=== PATIENT | female | born 1945 | race Caucasian/White ===

== ENCOUNTER → 2017-06-30 | Outpatient (CLI) | payer OTHER, MEDICARE | LOC: RAD 12:03 | DX: R05 Cough (principal) ==

== ENCOUNTER 2017-07-04 18:04 | Emergency (ER) | payer OTHER, MEDICARE ==
[~2017-07-04] VITALS: Ht 157.5 cm; Wt 67.1 kg
--- NOTE | ~2017-07-04 | EKG ---
[address] [address] ELECTROCARDIOGRAM REPORT Name: BRECHRISTIANO Room #: DEP [facility]#: [id number] Admission: 07/04/17 Attend Phys: Discharge: 07/04/17 Date of : 43 Report #: [id number] THIS REPORT FOR: //name// [facility] ED Test Date: 2017-07-04 Test Time: 18:23:34 Pat Name: CHRISTIANO DÍAZ Department: Room: Gender: F Lead Application Architect: ELENA : 1945 Requested By: Sarahy Saleh Order Number: [id number] MD: Sami Camejo Measurements Intervals [place] Rate: 87 P: 52 [place]: 188 QRS: 11 QRSD: 77 T: 60 QT: 362 QTc: 436 Interpretive Statements Sinus rhythm RSR' in V1 or V2, right VCD or RVH No previous ECG available for comparison Electronically Signed On 07-05-2017 12:09:01 CDT by Sami Camejo [email or web address] <ELECTRONICALLY SIGNED> By: Sami Camejo MD 07/05/17 1209 1823 22 Sami Camejo MD /JUANA
[2017-07-04 18:57] LABS: ABSOLUTE NEUTROPHILS 6.2 thou/uL (1.4-8.2); BASOPHILS 1.1 % (0.0-2.0); HEMATOCRIT 42.8 % (37.0-47.0); HEMOGLOBIN 14.6 gm/dL (12.0-15.0); LYMPHOCYTES 27.4 % (24.0-44.0); MCH 30.2 pg (26.0-34.0); MCHC 34.2 g/dL (28.0-37.0); MCV 88.4 fL (80.0-100.0); MONOCYTES 6.2 % (1.0-8.0); PLATELET COUNT 181 thou/uL (150-400); POLYS 63.3 % (36.0-66.0); RBC 4.84 mil/uL (4.20-5.00); WBC 9.8 thou/uL (4.0-11.0)
[2017-07-04 19:07] LABS: ANION GAP 4 mmol/L (7-16); BUN 15 mg/dL (7-18); CALCIUM 9.7 mg/dL (8.5-10.1); CHLORIDE 107 mmol/L (98-107); CO2 30 mmol/L (21-32); GLUCOSE 109 mg/dL (74-106); POTASSIUM 3.9 mmol/L (3.5-5.1); SODIUM 141 mmol/L (136-145)
[2017-07-04 19:15] LABS: TROPONIN-I < 0.04 ng/mL (<0.06)
[2017-07-04] MEDS ORDERED: MEDROLDOSEPACK PO (22:06)
[2017-07-04 22:11] VITALS: BP 141/73
== END 2017-07-04 22:11 | disposition home or self-care (01) ==
LOC: ER 18:04
PROVIDERS: Emergency Medicine
DX: J98.6 Disorders of diaphragm (principal); R07.89 Other chest pain; R06.00 Dyspnea, unspecified

== ENCOUNTER → 2017-10-23 | Outpatient (CLI) | payer OTHER, MEDICARE ==
[~2017-10-23] MED LIST: CYMBALTA60 MG PO; FLONASE 0.05%50 MCG NASAL; LIPITOR10 MG PO; MEDROLDOSEPACK PO; NAPROSYN500 MG PO; PROLOPRIM100 MG PO; SYMBICORT160 MCG/4. INH; SYNTHROID100 MC1 PO; TRAMADOL 50 MG50 MG PO; ZYRTEC10 M5 PO
[2017-10-23 10:26] VITALS: BP 126/75
[2017-10-23 16:00] LABS: ALBUMIN 3.7 g/dL (3.4-5.0); CALCIUM 10.1 mg/dL (8.5-10.1); CREATININE 0.9 mg/dL (0.6-1.0); POTASSIUM 4.1 mmol/L (3.5-5.1); TOTAL BILIRUBIN 0.5 mg/dL (<0.1-1.0); TOTAL PROTEIN 7.3 g/dL (6.4-8.2)
== END ==
LOC: SEN 07:59 → RAD 07:59 → SEN 15:26
PROVIDERS: Internal Medicine Geriatric Medicine
DX: M50.322 Other cervical disc degeneration at C5-C6 level (principal); E03.9 Hypothyroidism, unspecified

== ENCOUNTER → 2017-11-05 | Outpatient (CLI) | payer OTHER, MEDICARE ==
[2017-11-05 10:11] VITALS: BP 128/69
== END ==
LOC: SEN 08:23
DX: M25.511 Pain in right shoulder (principal); M25.512 Pain in left shoulder; R10.9 Unspecified abdominal pain; E03.9 Hypothyroidism, unspecified; M81.0 Age-related osteoporosis without current pathological fracture; Z96.641 Presence of right artificial hip joint

== ENCOUNTER 2017-12-22 16:05 | Emergency (ER) | payer OTHER, MEDICARE ==
[~2017-12-22] VITALS: Ht 157.5 cm; Wt 63.5 kg
--- NOTE | ~2017-12-22 | EKG ---
[place] [address] [facility] [place] [address] ELECTROCARDIOGRAM REPORT Name: CHRISTIANO DÍAZ [id number] Admission: 12/22/17 Attend Phys: Discharge: Date of : 43 Report #: [id number] THIS REPORT FOR: //name// [facility] ED Test Date: 2017-12-22 Test Time: 17:09:10 Pat Name: CHRISTIANO DÍAZ Department: Room: Gender: F Fiber Optic Splicer: LAXMI : 1945 Requested By: Sarahy Saleh Order Number: [id number] MD: Measurements Intervals [place] Rate: 96 P: 76 [place]: 184 QRS: 34 QRSD: 74 T: 66 QT: 332 QTc: 420 Interpretive Statements Sinus rhythm Probable left atrial enlargement RSR' in V1 or V2, right VCD or RVH Compared to ECG 11/29/2017 21:27:48 Right ventricular hypertrophy now present RSR' in V1 or V2 now present [email or web address] By: 1709 1709 Epiphany EpiphanyMD /EPI
[~2017-12-22 16:05] MED LIST changes: +AMOXICILLIN 50500 MG PO; +NORVASC5 MG PO; +PREDNISONE 10 M10 MG PO; +SALONPAS PATCH1 EAC1 TOP; +VENTOLIN HFA 1818 GM INH; +XANAX 0.5 MG0.5 MG PO
[2017-12-22 17:50] LABS: ANION GAP 8 mmol/L (7-16); BUN 14 mg/dL (7-18); CALCIUM 10.2 mg/dL (8.5-10.1); CHLORIDE 104 mmol/L (98-107); CO2 26 mmol/L (21-32); CREATININE 0.9 mg/dL (0.6-1.0); GLUCOSE 188 mg/dL (74-106); POTASSIUM 4.4 mmol/L (3.5-5.1); SODIUM 138 mmol/L (136-145)
[2017-12-22 17:54] LABS: BASOPHILS 0.4 % (0.0-2.0); EOSINOPHILS 0.3 % (0.0-3.0); HEMATOCRIT 42.2 % (37.0-47.0); HEMOGLOBIN 14.1 gm/dL (12.0-15.0); LYMPHOCYTES 10.2 % (24.0-44.0); MCH 28.9 pg (26.0-34.0); MCHC 33.5 g/dL (28.0-37.0); MCV 86.4 fL (80.0-100.0); MONOCYTES 3.3 % (1.0-8.0); PLATELET COUNT 197 thou/uL (150-400); POLYS 85.8 % (36.0-66.0); RBC 4.88 mil/uL (4.20-5.00); RDW 16.1 % (10.5-14.5); WBC 15.1 thou/uL (4.0-11.0)
[2017-12-22 17:59] LABS: TROPONIN-I <0.06 ng/mL (<0.06)
[2017-12-22 19:04] LABS: URINE BILIRUBIN NEGATIVE (Negative); URINE BLOOD TRACE (Negative); URINE CLARITY CLOUDY; URINE COLOR YELLOW; URINE GLUCOSE-RANDOM* NEGATIVE (Negative); URINE KETONES NEGATIVE (Negative); URINE LEUKOCYTES-REFLEX 1+ (Negative); URINE NITRITE-REFLEX NEGATIVE (Negative); URINE PROTEIN (DIPSTICK) NEGATIVE (Negative); URINE UROBILINOGEN 0.2 E.U./dl (0.2-1.0)
[2017-12-22 19:06] LABS: SQUAMOUS >10 Many /LPF (0-3)
[2017-12-22 19:07] LABS: BACTERIA-REFLEX >30 Many /HPF (None Seen); CASTS None Seen /LPF (None Seen); CRYSTALS None Seen /LPF (None Seen); URINE RBC 0-2 Rare /HPF (0-2); URINE WBC-REFLEX 6-15 Few /HPF (0-5)
[2017-12-22] MEDS ORDERED: PREDNISONE 10 M10 M1 PO (20:00)
[2017-12-22 20:36] VITALS: BP 117/56
[2017-12-23] MEDS ORDERED: PREDNISONE 10 M10 MG PO (13:21)
== END 2017-12-22 20:36 | disposition home or self-care (01) ==
LOC: ER 16:05
PROVIDERS: Emergency Medicine
DX: J44.1 Chronic obstructive pulmonary disease with (acute) exacerbation (principal); E03.9 Hypothyroidism, unspecified; M19.90 Unspecified osteoarthritis, unspecified site; Z96.641 Presence of right artificial hip joint; Z90.49 Acquired absence of other specified parts of digestive tract; Z88.2 Allergy status to sulfonamides

== ENCOUNTER → 2017-12-23 | Outpatient (CLI) | payer OTHER, MEDICARE ==
[~2017-12-23] MED LIST changes: +DOXYCYCLINE 10100 MG PO; +PREDNISONE 10 M10 M1 PO
[2017-12-23 13:32] VITALS: BP 129/75
== END ==
LOC: SEN 08:50
DX: J44.9 Chronic obstructive pulmonary disease, unspecified (principal); F32.9 Major depressive disorder, single episode, unspecified; E03.9 Hypothyroidism, unspecified; M19.90 Unspecified osteoarthritis, unspecified site; Z90.49 Acquired absence of other specified parts of digestive tract; Z96.641 Presence of right artificial hip joint; Z79.899 Other long term (current) drug therapy

== ENCOUNTER 2018-01-09 16:09 | Emergency (ER) | payer OTHER, MEDICARE ==
[~2018-01-09] VITALS: Ht 157.5 cm; Wt 63.5 kg
--- NOTE | ~2018-01-09 | EKG ---
[address] [place] [address] ELECTROCARDIOGRAM REPORT Name: CHRISTIANO DÍAZ ANN Room #: DEP [facility]#: [id number] Admission: 01/09/18 Attend Phys: Discharge: 01/09/18 Date of : 43 Report #: [id number] THIS REPORT FOR: //name// [facility] ED Test Date: 2018-01-09 Test Time: 17:00:37 Pat Name: CHRISTIANO DÍAZ Department: Room: Gender: F Patient Registrar: RAFY : 1945 Requested By: Ander Robles Order Number: [id number] MD: Edward Marr Measurements Intervals [place] Rate: 95 P: 54 [place]: 187 QRS: 8 QRSD: 81 T: 63 QT: 353 QTc: 444 Interpretive Statements Sinus rhythm Abnormal R-wave progression, early transition Compared to ECG 12/22/2017 17:09:10 No significant change was found Electronically Signed On 01-12-2018 8:20:53 CDT by Edward Marr [email or web address] <ELECTRONICALLY SIGNED> By: Edward Marr MD, [facility] 01/12/18 0820 99 99 Edward Marr MD, FACC /EPI
[~2018-01-09 16:09] MED LIST changes: -DOXYCYCLINE 10100 MG PO
[2018-01-09 17:22] LABS: ABSOLUTE NEUTROPHILS 10.7 thou/uL (1.4-8.2); BASOPHILS 0.6 % (0.0-2.0); EOSINOPHILS 0.3 % (0.0-3.0); HEMATOCRIT 38.5 % (37.0-47.0); MCH 29.6 pg (26.0-34.0); MCHC 33.9 g/dL (28.0-37.0); MCV 87.3 fL (80.0-100.0); MONOCYTES 5.6 % (1.0-8.0); PLATELET COUNT 173 thou/uL (150-400); POLYS 82.5 % (36.0-66.0); RBC 4.41 mil/uL (4.20-5.00); RDW 16.2 % (10.5-14.5); WBC 12.9 thou/uL (4.0-11.0)
[2018-01-09 17:42] LABS: ANION GAP 8 mmol/L (7-16); BUN 13 mg/dL (7-18); CALCIUM 9.6 mg/dL (8.5-10.1); CHLORIDE 103 mmol/L (98-107); CO2 25 mmol/L (21-32); CREATININE 0.8 mg/dL (0.6-1.0); GLUCOSE 159 mg/dL (74-106); SODIUM 136 mmol/L (136-145); TROPONIN-I <0.06 ng/mL (<0.06)
[2018-01-09 19:48] VITALS: BP 110/65
[2018-01-09] MEDS ORDERED: DOXYCYCLINE 10100 MG PO (19:57)
== END 2018-01-09 20:25 | disposition home or self-care (01) ==
LOC: ER 16:09
PROVIDERS: Emergency Medicine
DX: R60.0 Localized edema (principal); J18.9 Pneumonia, unspecified organism; K59.00 Constipation, unspecified; E03.9 Hypothyroidism, unspecified; M19.90 Unspecified osteoarthritis, unspecified site; I10 Essential (primary) hypertension; F41.9 Anxiety disorder, unspecified; F32.9 Major depressive disorder, single episode, unspecified; Z90.49 Acquired absence of other specified parts of digestive tract; Z96.641 Presence of right artificial hip joint; Z88.2 Allergy status to sulfonamides

== ENCOUNTER → 2018-01-12 | Outpatient (CLI) | payer OTHER, MEDICARE ==
[~2018-01-12] MED LIST changes: +DOXYCYCLINE 10100 MG PO
[2018-01-12 11:03] VITALS: BP 120/71
== END ==
LOC: SEN 09:18
DX: R60.0 Localized edema (principal); J15.9 Unspecified bacterial pneumonia; E03.9 Hypothyroidism, unspecified; M19.90 Unspecified osteoarthritis, unspecified site; I10 Essential (primary) hypertension; F32.9 Major depressive disorder, single episode, unspecified; F41.9 Anxiety disorder, unspecified; Z96.641 Presence of right artificial hip joint; Z90.49 Acquired absence of other specified parts of digestive tract; Z79.899 Other long term (current) drug therapy

== ENCOUNTER → 2018-03-26 | Outpatient (CLI) | payer OTHER, MEDICARE | LOC: NUC 11:06 → RAD 11:06 → NUC 16:42 | DX: Z12.31 Encounter for screening mammogram for malignant neoplasm of breast (principal); M81.0 Age-related osteoporosis without current pathological fracture; M85.89 Other specified disorders of bone density and structure, multiple sites; Z78.0 Asymptomatic menopausal state ==

== ENCOUNTER 2018-09-22 11:10 | Emergency (ER) | payer OTHER, MEDICARE ==
[~2018-09-22] VITALS: Ht 160 cm; Wt 77.1 kg
[2018-09-22] MEDS ORDERED: SYNTHROID88 MCG PO (11:35)
--- NOTE | 2018-09-22 11:35 | NUR ---
Call for patient wishing to speak to see if she would qualify for Hospice in the ED. Call to Cristofer Prajapati with [facility] at [phone] who will be out to see patient. Spoke with Елена in ED to inform of the above.
[2018-09-22 12:15] VITALS: BP 125/78
== END 2018-09-22 13:20 | disposition home or self-care (01) ==
LOC: ER 11:10
DX: Z51.5 Encounter for palliative care (principal); E03.9 Hypothyroidism, unspecified; M19.90 Unspecified osteoarthritis, unspecified site; I10 Essential (primary) hypertension; F41.9 Anxiety disorder, unspecified; F32.9 Major depressive disorder, single episode, unspecified; Z90.49 Acquired absence of other specified parts of digestive tract; Z96.641 Presence of right artificial hip joint; Z88.2 Allergy status to sulfonamides